=== PATIENT | female | born 2000 | race Caucasian/White ===

== ENCOUNTER 2019-07-18 20:41 | Emergency (ER) | payer OTHER ==
[~2019-07-18] VITALS: Ht 152.4 cm; Wt 42.6 kg
[2019-07-18 21:01] VITALS: BP_SYST 117
--- NOTE | 2019-07-18 21:06 | NUR ---
Patient triaged and placed in waiting room. VSS and patient appears in no acute distress at this time. Accompanied by BOYFRIEND, awaiting available bed, and MD notified of need for MSE.
--- NOTE | 2019-07-18 21:41 | NUR ---
Patient to ER bed 08 to gown for evaluation. Side rails up. Report given to CLIFF Mckinley
--- NOTE | 2019-07-18 21:55 | NUR ---
Pt C/O nausea, vomiting, headache and dizziness x 2 days. Pt states she recently had an iron infusion for her anemia shortly before her symptoms started. Denies any other symptoms at this time, will continue to monitor
--- NOTE | 2019-07-18 22:00 | NUR ---
ER Dr. Trammell at bedside examining patient.
[2019-07-18] MEDS ORDERED: NACL 0.9% 1,000 ML IV ONE (22:01)
--- NOTE | 2019-07-18 22:10 | NUR ---
# 22 gauge angiocath placed to LT Hand. Use of asceptic technique. Opsite placed over site. Blood return noted. Flushed with 10 cc of normal saline. No evidence of infiltration noted. Patient tolerated well.
[2019-07-18] MEDS ORDERED: ONDANSETRON HCL 4 MG/2 ML VIAL IVP ONE (22:15)
[2019-07-18] MEDS ORDERED: PROMETHAZINE INJ.Non-Formulary 25 MG/ML AMP IVP ONE (23:00)
--- NOTE | 2019-07-18 23:26 | NUR ---
Pt still C/O N/V after 8mg of Zofran. Pt has been given Promethazine 25mg PO and tolerated medication well. Will continue to monitor.
[2019-07-18] MEDS ORDERED: PROMETHAZINE HCL 25 MG TABLET PO ONE (23:30)
[2019-07-18] MEDS ORDERED: PROMETHAZINE HCL 25 MG TABLET ONE (23:34)
[2019-07-19] MEDS ORDERED: DIPHENHYDRAMINE INJ 50 MG/ML VIAL IVP ONE
[2019-07-19] MEDS ORDERED: PROCHLORPERAZINE EDISYLATE 10 MG/2 ML VIAL IVP ONE
--- NOTE | 2019-07-19 00:20 | NUR ---
Pt is sleeping in bed, no acute distress at this time. Will continue to monitor
[2019-07-19 01:12] VITALS: BP_SYST 122
--- NOTE | 2019-07-19 01:15 | NUR ---
Patient given written and verbal discharge instructions and verbalizes understanding. ER MD discussed with patient the results and treatment provided. Patient in stable condition. ID arm band removed. IV catheter removed intact and dressing applied, no active bleeding. Rx of Phenergan given. Patient educated on pain management and to follow up with PMD. Pain Scale 0. Opportunity for questions provided and answered. Medication side effect fact sheet provided.
== END 2019-07-19 01:15 | disposition home or self-care (01) ==
LOC: SED 20:41
DX: R11.2 Nausea with vomiting, unspecified (principal)
CPT/HCPCS: 81002; 81025; 96361; 96374; 96375; 99283; J0780; J1200; J2405; J2550; J7030; Q0169

== ENCOUNTER 2019-08-28 01:33 | Emergency (ER) | payer OTHER ==
[~2019-08-28] VITALS: Ht 152.4 cm; Wt 43.1 kg
[2019-08-28 01:35] VITALS: BP_SYST 113
--- NOTE | 2019-08-28 01:35 | NUR ---
Patient triaged and placed in waiting room. VSS and patient appears in no acute distress at this time. Accompanied by BOYFRIEND, awaiting available bed, and MD notified of need for MSE.
--- NOTE | 2019-08-28 03:15 | NUR ---
CALLED PT NAME IN THE WR,NO ANSWER.
--- NOTE | 2019-08-28 03:20 | NUR ---
CALLED PT NAME IN THE WR,NO ANSWER.
--- NOTE | 2019-08-28 03:25 | NUR ---
CALLED PT NAME IN THE WR,NO ANSWER.
== END 2019-08-28 03:25 | disposition left against medical advice (07) ==
LOC: SED 01:33
DX: O21.9 Vomiting of pregnancy, unspecified (principal); Z3A.01 Less than 8 weeks gestation of pregnancy; Z53.21 Procedure and treatment not carried out due to patient leaving prior to being seen by health care provider